=== PATIENT | female | born 1960 | race Caucasian/White ===

== ENCOUNTER 2022-05-06 10:30 | Outpatient (RCR) | payer OTHER, SELFPAY | END 2022-07-02 11:20 | disposition home or self-care (01) | PROVIDERS: PCP Family Medicine; Visit Provider Physician Assistant | DX: M25.512 Pain in left shoulder (principal); Z51.89 Encounter for other specified aftercare | CPT/HCPCS: 97110; 97162 ==

== ENCOUNTER 2022-08-31 13:45 | Outpatient (RCR) | payer BC, SELFPAY | END 2022-12-06 13:25 | disposition home or self-care (01) | PROVIDERS: PCP Family Medicine; Visit Provider Family Medicine | DX: R29.898 Other symptoms and signs involving the musculoskeletal system (principal); Z51.89 Encounter for other specified aftercare | CPT/HCPCS: 97110; 97162 ==